=== PATIENT | male | born 1940 | race Two or more races ===

== ENCOUNTER 2018-11-14 11:18 | Inpatient (IN) | payer OTHER ==
[~2018-11-14] VITALS: Ht 162.6 cm; Wt 71.7 kg
[2018-11-14] MEDS ORDERED: TRAMADOL HCL50 MG PO (12:08)
[2018-11-14] MEDS ORDERED: GABAPENTIN600 MG PO (12:09)
[2018-11-14] MEDS ORDERED: CLONAZEPAM1 M1 PO (12:09)
[2018-11-14] MEDS ORDERED: LOSARTAN POTASS50 MG PO (12:09)
[2018-11-21] MEDS ORDERED: MELOXICAM15 MG PO (11:08)
[2018-11-21] MEDS ORDERED: CARBAMAZEPINE100 MG PO (11:08)
[2018-12-03] MEDS ORDERED: CHOLESTYRAMINE L4 GM PO (13:13)
[2018-12-03] MEDS ORDERED: HYOSCYAMINE0.125 M1 SL (13:13)
[2018-12-03] MEDS ORDERED: TRAMADOL HCL50 MG PO (13:14)
== END 2018-12-03 18:43 | disposition home or self-care (01) | DRG 330 ==
LOC: ADM 11-15 11:00 → EDSTATUS 11-15 13:15 → ADM 11-15 13:15 → SURG 11-19 13:15 → O/R 11-21 07:54 → SURG 11-21 07:54
PROVIDERS: ADMIT Surgery
PROC: 0DJD8ZZ Inspection of Lower Intestinal Tract, Via Natural or Artificial Opening Endoscopic (ICD-10-PCS; 2018-11-21)
PROC: 4A1BXSH Monitoring of Gastrointestinal Vascular Perfusion using Indocyanine Green Dye, External Approach (ICD-10-PCS; 2018-11-21)
PROC: 0DTF4ZZ Resection of Right Large Intestine, Percutaneous Endoscopic Approach (ICD-10-PCS; principal; 2018-11-21 12:45)
DX: K59.02 Outlet dysfunction constipation (principal); K91.30 Postprocedural intestinal obstruction, unspecified as to partial versus complete; K91.0 Vomiting following gastrointestinal surgery; K57.30 Diverticulosis of large intestine without perforation or abscess without bleeding; K63.89 Other specified diseases of intestine; I10 Essential (primary) hypertension; F41.8 Other specified anxiety disorders